=== PATIENT | female | born 1970 | race Caucasian/White ===

== ENCOUNTER 2024-10-14 20:35 | Emergency (ER) | payer MEDICAID, SELFPAY ==
[2024-10-14 20:55] VITALS: BP 134/79; PULSE 69; RESP 20; TEMP 37.5; O2SAT 97; BMI 26.4
--- NOTE | 2024-10-14 20:59 | XR_ITS ---
Examination: CT abdomen with intravenous contrast CT pelvis with intravenous contrast 2-D coronal reconstructions 2-D sagittal reconstructions Date and time of exam:October 14, 2024 1109 hrs. Comparison August 08, 2024 Indications: Nausea vomiting dizziness diarrhea beginning 24 hours ago. CTDI: vol (mGy) 7.55 DLP: (mGycm) 382 Technique: Multiple axial sections of the abdomen and pelvis have been obtained. 64 slice high-resolution scanner used. 3 mm axial sections have been obtained, post intravenous injection 60 cc [id number] 2-D sagittal, coronal reconstructions obtained. Low dose protocols were performed. One or more of the following dose reduction techniques were used; automated exposure control, adjustment of the mA and/or KV according to patient size, use of iterative reconstruction technique. Findings: No focal liver or splenic lesions Absent gallbladder No pancreatic or adrenal mass 3 mm 2 mm right renal calculi No hydronephrosis or ureteral calculi Minimally fluid distended small bowel loops On this study the entire colon shows wall thickening and hyperemia No diverticulitis No pericecal inflammatory change Urinary bladder intact Moderate disc narrowing L5-S1 No pelvic mass Impression: Nonobstructing right renal calculi Diffuse nonspecific colitis pattern
--- NOTE | 2024-10-14 21:01 | EDRME_ITS ---
Rapid Medical Screening Exam [facility] Arrival date/time: 10/14/24 20:35 54F with history of cholecystectomy and hysterectomy presents to ED with several days of N/V, gen ab pain/cramping, non-bloody diarrhea, and fevers/chills. Chief Complaint: Nausea/Vomiting/Diarrhea Vital signs: Vital Signs Temperature 99.5 F 10/14/24 20:55 Pulse Rate 69 10/14/24 20:55 Respiratory Rate 20 10/14/24 20:55 Blood Pressure 134/79 H 10/14/24 20:55 Pulse Oximetry (%) 97 10/14/24 20:55 Oxygen Delivery Method Room Air 10/14/24 20:55
[2024-10-14 21:33] LABS: Lactate (Lactic Acid) 1.1 mMol/L (0.4-2.0)
[2024-10-14 21:38] LABS: Basophils # (Auto) 0.1 Thou/mm3 (0.0-0.2); Basophils % (Auto) 1 % (0-2.5); Eosinophils % (Auto) 0 % (0-10); Hematocrit 41.1 % (36.0-46.0); Hemoglobin 14.1 g/dL (12.0-16.0); Immature Granulocytes % (Auto) 0 % (0-0); Immature Granulocytes Auto 0.02 Thou/mm3 (0.00-0.00); Lymphocytes # (Auto) 2.5 Thou/mm3 (1.0-4.8); Lymphocytes % (Auto) 24 % (10-50); Mean Corpuscular HGB Conc 34.3 g/dl (31.0-37.0); Mean Corpuscular Hemoglobin 31.8 pg (25.0-35.0); Mean Corpuscular Volume 93 fL (80-100); Monocytes # (Auto) 0.7 Thou/mm3 (0.0-0.8); Monocytes % (Auto) 7 % (0-12); Neutrophils # (Auto) 7.1 Thou/mm3 (1.8-7.7); Neutrophils % (Auto) 68 % (37-80); Nucleated Red Blood Cell % 0 /100 WBC (0); Platelet Count 220 Thou/mm3 (140-440); RDW Standard Deviation 42.7 fL (36.4-46.3); Red Blood Count 4.43 Miln/mm3 (4.00-5.20); White Blood Count 10.4 Thou/mm3 (3.6-11.0)
[2024-10-14 21:58] LABS: Collection Type, Urine Clean Catch
[2024-10-14 22:07] LABS: Alanine Aminotransferase 7 U/L (10-49); Albumin, Serum 4.4 gm/dL (3.5-5.0); Albumin/Globulin Ratio 1.5 (1.2-2.2); Alkaline Phosphatase 59 U/L (46-116); Anion Gap 8 (7-16); Aspartate Amino Transferase 14 U/L (0-34); BUN/Creatinine Ratio 13 Ratio (12-20); Bilirubin,Total 0.8 mg/dL (0.3-1.2); Blood Urea Nitrogen 9 mg/dL (9-23); Carbon Dioxide 25.3 mMol/L (20.0-31.0); Chloride 107 mMol/L (98-107); Creatinine (Component) 0.7 mg/dL (0.6-1.3); Estimated Creatinine Clearance 95.9 mL/min (>60); Globulin 2.9 gm/dL (2.3-3.5); Glucose 105 mg/dL (74-106); Lipase 35 U/L (12-53); Osmolality,Calculated 278 (275-295); Potassium 4.1 mMol/L (3.4-5.1); Procalcitonin < 0.04 ng/ml (0.0-0.49); Sodium 140 mMol/L (136-145); Total Protein 7.3 gm/dL (5.7-8.2); eGFR > 60 See Note
[2024-10-14 22:17] LABS: Bacteria,Urine 3+; Bilirubin,Urine Negative (Negative); Blood,Urine 1+ (Negative); Clarity,Urine Turbid (Clear/Hazy); Color,Urine Yellow (Lt Yel-Yel); Glucose, Urine Negative (Negative); Ketones,Urine 2+ (Negative); Leukocyte Esterase,Urine Negative (Negative); Nitrite,Urine Positive (Negative); Protein,Urine 1+ (Neg - Trace); RBC,Urine 9 /hpf (0-3); Specific Gravity,Urine 1.031 (1.001-1.035); Squamous Epithelial Cell,Urine 5 /hpf (0-5); Urobilinogen,Urine Negative mg/dL (0.0-1.0); WBC,Urine 9 /hpf (0-5)
[2024-10-14] MEDS: ONDANSETRON INJ 2 MG/ML INJ 2 ML 4 MG IV ×2 (22:18→22:57)
--- NOTE | 2024-10-14 22:29 | EDNOTE_ITS ---
Nausea/Vomit./Diarrhea-RME/HPI General Chief complaint: Nausea/Vomiting/Diarrhea Stated complaint: N/V/D, Dizzy Source: patient Arrival date/time: 10/14/24 20:35 Mode of arrival: ambulatory Limitations: no limitations RME / HPI RME / HPI Narrative: 10/14/24 20:35 54F with history of cholecystectomy and hysterectomy presents to ED with several days of N/V, gen ab pain/cramping, non-bloody diarrhea, and fevers/chills. DR BERMUDEZ MAIN ED EVALUATION: 54-year-old female who presents to the emergency department via private auto for chief complaint of persistent nausea and vomiting. She also reports worsening generalized abdominal pain accompanied with cramping. She reports non-blood diarrhea. She reports fever and chills. Denies any other medical complaints or associated symptons . History includes migraine, hypertension, anxiety, cholecystectomy and hysterectomy. No history of diabetes. No history of tobacco, alcohol or substance use. PCP: Ella Bishop Related Data Home Medications ?Medication ?Instructions ?Recorded ?Confirmed amlodipine 5 mg tablet 5 mg PO DAILY 08/21/22 06/28/24 estradiol 0.01% (0.1 mg/gram) 2 g vaginal DIRECTED 06/17/23 06/28/24 vaginal cream (Estrace) nitrofurantoin macrocrystal 100 mg 100 mg PO QHS 06/28/24 06/28/24 capsule Previous Rx's ?Medication ?Instructions ?Recorded ibuprofen 800 mg tablet 800 mg PO TID PRN pain #30 tabs 11/02/23 baclofen 10 mg tablet 10 mg PO BID #20 tabs 08/08/24 ciprofloxacin HCl 500 mg tablet 500 mg PO BID #20 tabs 10/15/24 (Cipro) metronidazole 500 mg tablet 500 mg PO TID #21 tabs 10/15/24 Allergies Allergy/AdvReac Type Severity Reaction Status Date / Time codeine Allergy Severe Vomiting Verified 08/08/24 08:43 [From Tylenol-Codeine] Review of Systems Review of Systems Systems Reviewed: All systems reviewed, normal except as documented Past Medical History Past Medical History NEUROLOGIC: Positive Neurological Disorders and Migraine; Negative Seizures CARDIAC: Positive Cardiac Disorders and Hypertension; Negative Congestive Heart Failure, Edema, Cellulitis, Hypotension or Varicose Veins RESPIRATORY: Negative Chronic Obstructive Pulmonary Disease (COPD), Asthma or Sleep Apnea GASTROINTESTINAL: Positive Gastrointestinal Disorders, Gall Bladder Disease and Obesity; Negative Hepatitis GENITOURINARY: Positive Genitourinary Disorders; Negative Renal Disease REPRODUCTIVE: Positive Previous Pregnancies MUSCULOSKELETAL: Negative Musculoskeletal Disorders ENDOCRINE: Negative Endocrine Disorders, Diabetes Mellitus Type 1, Diabetes Mellitus Type 2 or Hypothyroidism HEMATOLOGIC: Negative Blood Disorders, Anemia or Sickle Cell Disease PSYCHO/SOCIAL: Positive Anxiety OTHER HISTORY: Positive Chicken Pox; Negative Hospitalization, Autoimmune Disease, Shingles, Falls, Blood Transfusions, Anesthesia Reactions, Chemotherapy, Radiation Therapy, MRSA, Measles, Mumps or Cancer Family History FAMILY HISTORY: Positive Family Psychiatric Problems, Family Cardiac Disorders and Family Surgery; Negative Family Respiratory Disorders, Family Gastrointestinal Problems, Family Cancer or Family Anesthesia Reaction Surgical History SURGICAL: Positive Nephrectomy and Hysterectomy; Negative Cardiac Surgery, Pacemaker or Abdominal Surgery Social History SMOKING STATUS: Former smoker SUBSTANCE USE: does not use ED Exam Narrative Physical exam: GENERAL APPEARANCE: alert and oriented x 4, well-developed, well-nourished, no acute distress VITALS: All vitals were reviewed and the pulse ox is 97% on room air, which is normal according to my interpretation. HEENT: Normocephalic, atraumatic; pupils equal, round, reactive to light; EOMI; mucous membranes pink, moist; oropharynx clear NECK: Supple LUNGS: CTABL; no wheezes, no rales, no rhonchi HEART: Regular rate, regular rhythm; normal S1, S2; no murmurs ABDOMEN: non distended; normal BS; soft, no tenderness, no guarding, no rebound ; no masses, no organomegaly, no hernia BACK: no CVA tenderness EXTREMITIES: atraumatic; no edema NEUROLOGIC: awake; alert and oriented x4; cranial nerves II-XII grossly intact; no focal sensory or motor deficits PSYCHIATRIC: appropriate mood and affect SKIN: warm, dry, normal color; no rashes General Limitations: Present no limitations Course Quality Measures none Orders Category Date Time Status CT Screening NOW Care 10/14/24 21:01 Completed EKG (ED ONLY) *Do not use* NOW Care 10/15/24 00:30 Completed Insert IV NOW Care 10/14/24 20:[address] abdomen pelvis w con Stat Exams 10/14/24 20:59 Completed EKG (ED Only) Stat Exams 10/15/24 00:30 Draft CBC Stat Lab 12/12/24 21:17 Completed CMP [Comprehensive Metabolic Panel] Stat Lab 10/14/24 21:17 Completed Drug Screen,Urine Stat Lab 10/14/24 21:53 Completed Lactate (Lactic Acid) Stat Lab 10/14/24 21:17 Completed Lipase Stat Lab 10/14/24 21:17 Completed Procalcitonin Stat Lab 10/14/24 21:17 Completed Troponin I Stat Lab 10/15/24 01:55 Completed UA [Urinalysis] Stat Lab 10/14/24 21:53 Completed Urine Culture Stat Lab 10/14/24 21:53 Received Ciprofloxacin HCl [Ciprofloxacin] Med 10/15/24 02:35 Discontinued 500 mg PO X1 ONE Lidocaine 2% Viscous [Xylocaine 2% Viscous] Med 10/15/24 01:09 Discontinued 15 ml PO X1 ONE Morphine Inj Med 10/14/24 22:34 Discontinued 5 mg IVP X1 ONE Ondansetron Inj [Zofran Inj] Med 10/14/24 20:59 Discontinued 4 mg IV X1 ONE Ondansetron Inj [Zofran Inj] Med 10/14/24 22:34 Discontinued 4 mg IV X1 ONE Sodium Chloride 0.9% 1000 ml [Ns] 1,000 ml Med 10/14/24 22:34 Discontinued IV 999 mls/hr Sodium Chloride 0.9% 1000 ml [Ns] 1,000 ml Med 10/14/24 22:34 Discontinued IV 999 mls/hr metroNIDAZOLE [Flagyl] Med 10/15/24 02:35 Discontinued 500 mg PO X1 ONE mg Hyd/Al Hyd/Michele Susp [Maalox Susp] Med 10/15/24 01:09 Discontinued 30 ml PO X1 ONE Vital Signs Vital signs: Vital Signs Temperature 99.5 F 10/14/24 20:55 Pulse Rate 69 10/14/24 20:55 Respiratory Rate 20 10/14/24 20:55 Blood Pressure 134/79 H 10/14/24 20:55 Pulse Oximetry (%) 97 10/14/24 20:55 Oxygen Delivery Method Room Air 10/14/24 20:55 Nausea/Vomiting/Diarrhea MDM Narrative MDM Narrative:: Scribe Attestation: IDinah am scribing for and in the presence of Dr. Bermudez. Provider Notation: Although this document has been carefully reviewed, there may still be some phonetic and other typographical errors. These errors are purely grammatical due to imperfections in the software program and should not be construed in any way to compromise the substance of the patient's medical care during this visit. Patient data External records reviewed:: [facility] previous records Clinical information provided by:: patient Social determinants that could affect healthcare access:: none Patient has the following chronic illnesses:: migraine, hypertension, anxiety, cholecystectomy and hysterectomy How is presenting disease/condition affected by chronic disease/condition?: uneffected by Evaluation data The following diagnostics were reviewed and interpreted by me:: lab results and radiology exam(s) Lab and/or radiology exams considered but not ordered:: None Interpretation Summary: I personally reviewed the radiology data and agree with the radiologist's interpretation. Examination: CT abdomen with intravenous contrast CT pelvis with intravenous contrast 2-D coronal reconstructions 2-D sagittal reconstructions Date and time of exam:October 14, 2024 1109 hrs. Comparison August 08, 2024 Indications: Nausea vomiting dizziness diarrhea beginning 24 hours ago. Findings: No focal liver or splenic lesions Absent gallbladder No pancreatic or adrenal mass 3 mm 2 mm right renal calculi No hydronephrosis or ureteral calculi Minimally fluid distended small bowel loops On this study the entire colon shows wall thickening and hyperemia No diverticulitis No pericecal inflammatory change Urinary bladder intact Moderate disc narrowing L5-S1 No pelvic mass Impression: Nonobstructing right renal calculi Diffuse nonspecific colitis pattern Dictated By: Osmani Farah MD Medications / Prescriptions Medications / Prescriptions considered but not ordered:: None Medication administrations:: Medication Administration History Discontinued Medications Al Hydrox/Mg Hydrox/Simethicone (Mg Hyd/Al Hyd/Michele (Maalox Reg) Susp 30 Ml Udc) 30 ml PO X1 ONE Stop: 10/15/24 01:10 Last Admin: 10/15/24 01:13 Dose: 30 ml Documented By: DAVID Ciprofloxacin (Ciprofloxacin Hcl 250 Mg Tablet) 500 mg PO X1 ONE Stop: 10/15/24 02:36 Last Admin: 10/15/24 02:55 Dose: 500 mg Documented By: DAVID Sodium Chloride (Ns) 1,000 mls @ 999 mls/hr IV .Q1H1M ONE Stop: 10/14/24 23:34 Last Infusion: 10/14/24 23:57 Dose: Infused Documented By: Admin: 10/14/24 22:55 Dose: 999 mls/hr Documented By: DAVID Sodium Chloride (Ns) 1,000 mls @ 999 mls/hr IV .Q1H1M ONE Stop: 10/14/24 23:34 Last Infusion: 10/14/24 23:58 Dose: Infused Documented By: Admin: 10/14/24 22:55 Dose: 999 mls/hr Documented By: DAVID Lidocaine HCl (Lidocaine Viscous 2% 15 Ml Udc) 15 ml PO X1 ONE Stop: 10/15/24 01:10 Last Admin: 10/15/24 01:13 Dose: 15 ml Documented By: DAVID Metronidazole (Metronidazole 250 Mg Tablet) 500 mg PO X1 ONE Stop: 10/15/24 02:36 Last Admin: 10/15/24 02:55 Dose: 500 mg Documented By: DAVID Morphine Sulfate (Morphine Sulf Inj 10 Mg/Ml Vial) 5 mg IVP X1 ONE Stop: 10/14/24 22:35 Last Admin: 10/14/24 22:56 Dose: 5 mg Documented By: DAVID Ondansetron HCl (Ondansetron Inj 2 Mg/Ml Inj 2 Ml) 4 mg IV X1 ONE; Protocol Stop: 10/14/24 21:00 Last Admin: 10/14/24 22:18 Dose: 4 mg Documented By: DAVID Ondansetron HCl (Ondansetron Inj 2 Mg/Ml Inj 2 Ml) 4 mg IV X1 ONE Stop: 10/14/24 22:35 Last Admin: 10/14/24 22:57 Dose: 4 mg Documented By: DAVID As above, if any Consultations Consultation(s) initiated? (list below): No Diagnosis Nausea Differential Diagnosis: food poisoning, gastroenteritis, drug-induced nausea and vomiting and dehydration Most likely diagnosis given after review of the tests above:: Colitis Admission Indicated Admission indicated?: not indicated Admission Request Was there a request for admission?: No Disposition Plan Disposition Plan: Discharge Discharge Attestation Discharge Attestation: The patient and all family members were given an opportunity to ask questions and understood the discharge instructions. Discharge instructions specifically effects, indications for sooner follow up or return to the emergency department, and the expected course of current diagnosis. Patient condition: Stable Discharge Plan Plan Patient Disposition: HOME (Self Care) Prescriptions/Referrals Prescriptions/Med Rec: New metronidazole 500 mg tablet 500 mg PO TID Qty: 21 0RF ciprofloxacin HCl [Cipro] 500 mg tablet 500 mg PO BID Qty: 20 0RF No Action estradiol [Estrace] 0.01 % (0.1 mg/gram) cream 2 g vaginal DIRECTED Patient Comments: twice a week nitrofurantoin macrocrystal 100 mg capsule 100 mg PO QHS Rx Instructions: must administer with a meal/food amlodipine 5 mg tablet 5 mg PO DAILY Patient Comments: take 1 tablet by mouth once daily for high blood pressure ibuprofen 800 mg tablet 800 mg PO TID PRN (Reason: pain) Qty: 30 0RF baclofen 10 mg tablet 10 mg PO BID Qty: 20 0RF Referrals: Ella Bishop PA-C [Primary Care Provider] - In 1 week Problem List Clinical Impression: Colitis Patient/Caregiver Discharge Instructions Education Materials: Understanding Colitis Print Language: Indonesian Stand Alone Forms: Annalisa Award Info., Work/School Release, Patient Portal Info Letter
[2024-10-14] MEDS: SODIUM CHLORIDE 0.9% 1000 ML 1,000 ML 999 ML IV ×2 (22:55)
[2024-10-14] MEDS: MORPHINE SULF INJ 10 MG/ML VIAL 5 MG IVP (22:56)
[2024-10-14 23:33] LABS: Amphetamine/Methamp Scrn,U Negative (Negative); Barbiturate Screen,Urine Negative (Negative); Benzodiazepines Screen,Urine Negative (Negative); Benzoylecgonine Screen, Ur Negative (Negative); Fentanyl Screen,Urine Negative (Negative); Opiate Screen,Urine Negative (Negative); THC Screen,Urine Positive (Negative)
--- NOTE | 2024-10-15 00:30 | EKG_ITS ---
[facility] Test Date: 2024-10-15 Pat Name: VARINDER SHAFFER Department: Room: - Gender: Female [employer]: : 1970 Requested By: Sandrine Hernández Order Number: [id number] Reading MD: Sandrine Hernández Measurements Intervals [place] Rate: 74 P: 38 [place]: 140 QRS: 23 QRSD: 94 T: 15 QT: 359 QTc: 400 Interpretive Statements SINUS RHYTHM NONSPECIFIC T-WAVE ABNORMALITY Compared to ECG 08/21/2022 09:45:00 T-wave abnormality now present Sinus bradycardia no longer present Myocardial infarct finding no longer present /store/S0/[id number].pdf
[2024-10-15] MEDS: MG HYD/AL HYD/SIME (Maalox Reg) SUSP 30 ML UDC PO (01:13)
[2024-10-15] MEDS: LIDOCAINE VISCOUS 2% 15 ML UDC PO (01:13)
[2024-10-15 02:23] LABS: Troponin I < 0.002 ng/mL (0.0-0.045)
[2024-10-15 02:30] VITALS: BP 134/77; PULSE 71; RESP 17; TEMP 36.7; O2SAT 99
[2024-10-15] MEDS: metroNIDAZOLE 250 MG TABLET 500 MG PO (02:55)
[2024-10-15] MEDS: CIPROFLOXACIN HCL 250 MG TABLET 500 MG PO (02:55)
== END 2024-10-15 03:16 | disposition home or self-care (01) ==
PROVIDERS: Physician Assistant; Emergency Provider Emergency Medicine; PCP Physician Assistant
DX: K52.9 Noninfective gastroenteritis and colitis, unspecified (principal); N20.0 Calculus of kidney; R94.31 Abnormal electrocardiogram [ECG] [EKG]; I10 Essential (primary) hypertension; Z87.891 Personal history of nicotine dependence
CPT/HCPCS: 36415; 74177; 80053; 80307; 81001; 83605; 83690; 84145; 84484; 85025; 87077; 87086; 87186; 93005; 96361; 96374; 96375; 99285; A4649; J2270; J2405; J3490; J7030; Q9967; A9270

== ENCOUNTER 2025-02-01 09:54 | Emergency (ER) | payer MEDICAID, SELFPAY ==
--- NOTE | 2025-02-01 10:11 | EKG_ITS ---
[facility] Test Date: 2025-02-01 Pat Name: VARINDER SHAFFER Department: Room: - Gender: Female [employer]: : 1970 Requested By: Miki Jiang Order Number: [id number] Reading MD: Miki Jiang Measurements Intervals [place] Rate: 61 P: 36 AR: 143 QRS: 23 QRSD: 85 T: 29 QT: 387 QTc: 391 Interpretive Statements SINUS RHYTHM Compared to ECG 10/15/2024 00:39:37 T-wave abnormality no longer present /store/S0/[id number].pdf
--- NOTE | 2025-02-01 10:13 | PD.EDRME ---
Rapid Medical Screening Exam E Arrival date/time: 02/01/25 09:54 54-year-old female with a history of hypertension presents to the emergency room with a chief complaint of near syncope, weakness, and a burning sensation throughout her body x 3 days. I have greeted and performed a focused initial assessment of this patient. A comprehensive ED assessment and evaluation of the patient, analysis of all test results, and completion of the medical decision making process will be conducted by additional ED providers. Chief Complaint: General Adult/Misc Complain Vital signs reviewed by provider: Yes
[2025-02-01 10:18] VITALS: BP 127/79; PULSE 64; RESP 16; TEMP 36.7; O2SAT 99; BMI 22.8
[2025-02-01 10:52] LABS: Basophils % (Auto) 0 % (0-2.5); Eosinophils % (Auto) 0 % (0-10); Hematocrit 40.8 % (36.0-46.0); Hemoglobin 13.7 g/dL (12.0-16.0); Immature Granulocytes % (Auto) 0 % (0-0); Immature Granulocytes Auto 0.02 Thou/mm3 (0.00-0.00); Lymphocytes # (Auto) 1.2 Thou/mm3 (1.0-4.8); Lymphocytes % (Auto) 14 % (10-50); Mean Corpuscular HGB Conc 33.6 g/dl (31.0-37.0); Mean Corpuscular Hemoglobin 31.9 pg (25.0-35.0); Mean Corpuscular Volume 95 fL (80-100); Monocytes # (Auto) 0.4 Thou/mm3 (0.0-0.8); Monocytes % (Auto) 5 % (0-12); Neutrophils # (Auto) 6.7 Thou/mm3 (1.8-7.7); Neutrophils % (Auto) 80 % (37-80); Nucleated Red Blood Cell % 0 /100 WBC (0); Platelet Count 207 Thou/mm3 (140-440); RDW Standard Deviation 44.3 fL (36.4-46.3); Red Blood Count 4.29 Miln/mm3 (4.00-5.20); White Blood Count 8.4 Thou/mm3 (3.6-11.0)
[2025-02-01 11:10] LABS: INR 1.1 (0.9-1.3); Partial Thromboplastin Time 25.7 Seconds (22.0-36.0); Prothrombin Time 11.5 Seconds (9.0-12.2)
[2025-02-01 11:12] LABS: Collection Type, Urine Clean Catch
[2025-02-01 11:22] LABS: Bacteria,Urine 3+; Bilirubin,Urine Negative (Negative); Blood,Urine Trace (Negative); Calcium Oxalate Crystals,Urine 1+; Color,Urine Yellow (Lt Yel-Yel); Glucose, Urine Negative (Negative); Ketones,Urine Negative (Negative); Leukocyte Esterase,Urine Negative (Negative); Nitrite,Urine Negative (Negative); Protein,Urine Trace (Neg - Trace); RBC,Urine 4 /hpf (0-3); Specific Gravity,Urine 1.025 (1.001-1.035); Squamous Epithelial Cell,Urine 10 /hpf (0-5); Urobilinogen,Urine Negative mg/dL (0.0-1.0); WBC,Urine 9 /hpf (0-5)
[2025-02-01 11:24] LABS: B-Type Natriuretic Peptide 27 pg/mL (0-100)
[2025-02-01 11:35] LABS: Clarity,Urine Hazy (Clear/Hazy)
[2025-02-01 11:36] LABS: Alanine Aminotransferase < 7 U/L (10-49); Albumin, Serum 4.2 gm/dL (3.5-5.0); Albumin/Globulin Ratio 1.5 (1.2-2.2); Alkaline Phosphatase 57 U/L (46-116); Anion Gap 5 (7-16); Aspartate Amino Transferase 13 U/L (0-34); BUN/Creatinine Ratio 14 Ratio (12-20); Bilirubin,Total 0.5 mg/dL (0.3-1.2); Blood Urea Nitrogen 10 mg/dL (9-23); Calcium 9.2 mg/dL (8.3-10.6); Calcium (Corrected) 9.2 mg/dL (8.5-10.1); Carbon Dioxide 27.9 mMol/L (20.0-31.0); Chloride 107 mMol/L (98-107); Creatinine (Component) 0.7 mg/dL (0.6-1.3); Globulin 2.8 gm/dL (2.3-3.5); Glucose 87 mg/dL (74-106); Magnesium 2.1 mg/dL (1.6-2.6); Osmolality,Calculated 277 (275-295); Potassium 4.4 mMol/L (3.4-5.1); Sodium 140 mMol/L (136-145); Troponin I < 0.020 ng/mL (0.0-0.045); eGFR > 60 See Note
[2025-02-01 11:57] LABS: Amphetamine/Methamp Scrn,U Negative (Negative); Barbiturate Screen,Urine Negative (Negative); Benzodiazepines Screen,Urine Negative (Negative); Benzoylecgonine Screen, Ur Negative (Negative); Fentanyl Screen,Urine Negative (Negative); Opiate Screen,Urine Negative (Negative); THC Screen,Urine Positive (Negative)
--- NOTE | 2025-02-01 13:23 | PD.EDADULT ---
ED General RME/HPI General Chief complaint: General Adult/Misc Complain Stated complaint: HOT SENSATION OVER BODY, FEEL LIKE PASSING OUT Time Seen by Provider: 02/01/25 13:15 Arrival date/time: 02/01/25 09:54 CC: Flushed sensation with lightheadedness and generalized weakness HPI ongoing for the past several weeks but has multiple episodes in last 3 days. Denies chest pain shortness of breath or difficulty breathing. Upon reflection during our conversation patient realizes she is under a lot of stress. When asked if there is been a prior history of similar events patient states she had several years ago again when she was under a large amount of stress. Patient has no specific complaints at this time has no symptoms at this time as well. Patient is tearful mildly anxious but not in any acute distress. RME / HPI RME / HPI narrative: 02/01/25 09:54 54-year-old female with a history of hypertension presents to the emergency room with a chief complaint of near syncope, weakness, and a burning sensation throughout her body x 3 days. I have greeted and performed a focused initial assessment of this patient. A comprehensive ED assessment and evaluation of the patient, analysis of all test results, and completion of the medical decision making process will be conducted by additional ED providers. Related Data Home Medications ?Medication ?Instructions ?Recorded ?Confirmed amlodipine 5 mg tablet 5 mg PO DAILY 08/21/22 06/28/24 estradiol 0.01% (0.1 mg/gram) 2 g vaginal DIRECTED 06/17/23 06/28/24 vaginal cream (Estrace) nitrofurantoin macrocrystal 100 mg 100 mg PO QHS 06/28/24 06/28/24 capsule Previous Rx's ?Medication ?Instructions ?Recorded ibuprofen 800 mg tablet 800 mg PO TID PRN pain #30 tabs 11/02/23 baclofen 10 mg tablet 10 mg PO BID #20 tabs 08/08/24 ciprofloxacin HCl 500 mg tablet 500 mg PO BID #20 tabs 10/15/24 (Cipro) metronidazole 500 mg tablet 500 mg PO TID #21 tabs 10/15/24 amoxicillin 875 mg-potassium 1 tab PO BID #14 tabs 10/22/24 clavulanate 125 mg tablet Allergies Allergy/AdvReac Type Severity Reaction Status Date / Time codeine (From Allergy Severe Vomiting Verified 02/01/25 09:58 Tylenol-Codeine) Review of Systems Review of Systems Narrative Review of Systems: GEN: No fever, no chills, no weight loss EYES: No discharge, no visual changes, no pain HEENT: No ear pain, no congestion, no sore throat PULM: No shortness of breath, no cough, no congestion CV: No chest pain, no dyspnea on exertion, no palpitations GI: No nausea, no vomiting, no diarrhea, no pain, no constipation : No frequency, no urgency, no dysuria MUSC/SKEL: No joint pain, no back pain SKIN: No rash PSYCH: No hallucinations, no depression HEME/LYMPH: No easy bleeding or bruising tendencies NEURO: No weakness, no headache Past Medical History Past Medical History NEUROLOGIC: Positive Neurological Disorders and Migraine; Negative Seizures CARDIAC: Positive Cardiac Disorders and Hypertension; Negative Congestive Heart Failure, Edema, Cellulitis, Hypotension or Varicose Veins RESPIRATORY: Negative Chronic Obstructive Pulmonary Disease (COPD), Asthma or Sleep Apnea GASTROINTESTINAL: Positive Gastrointestinal Disorders, Gall Bladder Disease and Obesity; Negative Hepatitis GENITOURINARY: Positive Genitourinary Disorders; Negative Renal Disease REPRODUCTIVE: Positive Previous Pregnancies MUSCULOSKELETAL: Negative Musculoskeletal Disorders ENDOCRINE: Negative Endocrine Disorders, Diabetes Mellitus Type 1, Diabetes Mellitus Type 2 or Hypothyroidism HEMATOLOGIC: Negative Blood Disorders, Anemia or Sickle Cell Disease PSYCHO/SOCIAL: Positive Anxiety OTHER HISTORY: Positive Chicken Pox; Negative Hospitalization, Autoimmune Disease, Shingles, Falls, Blood Transfusions, Anesthesia Reactions, Chemotherapy, Radiation Therapy, MRSA, Measles, Mumps or Cancer Family History FAMILY HISTORY: Positive Family Psychiatric Problems, Family Cardiac Disorders and Family Surgery; Negative Family Respiratory Disorders, Family Gastrointestinal Problems, Family Cancer or Family Anesthesia Reaction Surgical History SURGICAL: Positive Nephrectomy and Hysterectomy; Negative Cardiac Surgery, Pacemaker or Abdominal Surgery Social History SMOKING STATUS: Never smoker SUBSTANCE USE: does not use ED Exam Narrative Physical exam: [General: Not in any acute distress Head normocephalic HEENT: Within acceptable limits Neck is supple nontender Chest equal chest rise nontender to palpation Respiratory: Clear to auscultation no wheezes crackles or rubs CV: Rate rhythm is regular no murmurs rubs or clicks Abdomen is soft nontender no masses positive bowel sounds all 4 quadrants Back: No CVA tenderness no spinous process tenderness from cervical spine thoracic and lumbar spine Skin: Intact no petechiae rash induration ulceration or crepitus Extremities: Moving all extremity against resistance cap refill less than 2 seconds neurosensory intact Neuro: Awake alert oriented x3 Glascow coma 15 no focal deficits] Course Quality Measures none Orders Category Date Time Status Bedside COVID-19 Antigen Test NOW Care 02/01/25 10:12 Active Bedside Influenza A&B Antigen Test NOW Care 02/01/25 10:12 Completed EKG (ED ONLY) *Do not use* NOW Care 02/01/25 10:11 Completed EKG (ED Only) Stat Exams 02/01/25 10:11 Draft B-Type Natriuretic Peptide Stat Lab 02/01/25 10:29 Completed CBC Stat Lab 02/01/25 10:29 Completed Comprehensive Metabolic Panel Stat Lab 02/01/25 10:29 Completed Drug Screen,Urine Stat Lab 02/01/25 10:45 Completed Magnesium Stat Lab 02/01/25 10:29 Completed Partial Thromboplastin Time Stat Lab 02/01/25 10:29 Completed Prothrombin Time with INR Stat Lab 02/01/25 10:29 Completed Troponin I Stat Lab 02/01/25 10:29 Completed Urinalysis Stat Lab 02/01/25 10:45 Completed Vital Signs Vital signs: Vital Signs Temperature 98.0 F 02/01/25 10:18 Pulse Rate 64 02/01/25 10:18 Respiratory Rate 16 02/01/25 10:18 Blood Pressure 127/79 02/01/25 10:18 Pulse Oximetry (%) 99 02/01/25 10:18 Oxygen Delivery Method Room Air 02/01/25 10:18 [facility] Patient data External records reviewed:: [facility] previous records Clinical information provided by:: patient Social determinants that could affect healthcare access:: none Patient has the following chronic illnesses:: None How is presenting disease/condition affected by chronic disease/condition?: uneffected by Evaluation data The following diagnostics were reviewed and interpreted by me:: lab results and radiology exam(s) Lab and/or radiology exams considered but not ordered:: CBC shows no acute leukocytosis anemia thrombocytopenia CMP shows no electrolyte imbalances renal impairment transaminitis or T. bili elevation Coags within acceptable limits Troponin is negative BNP is negative Urine is a contaminated catch U tox is positive for marijuana. EKG performed at 1022 shows a ventricular rate of 61 OK interval 143 QRS of 8 5 QTc of 390 this normal sinus rhythm. Interpretation Summary: After lengthy conversation with the patient regarding her symptoms I suspect this is all stress-induced, the patient has had similar episode several years ago and now has under a lot of stress and is having this reoccurrence there is no acute finding requires emergent or immediate intervention patient will be discharged home with a diagnosis of a stress response and if there is worsening of symptoms she is advised to follow-up with her primary care provider potentially speak with a counselor. Medications Medications considered but not ordered:: None Medication administrations:: None Consultations Consultation(s) initiated? (list below): No Diagnosis Differential Diagnosis ED Complaint MDM: ACS [place] pneumonia Most likely diagnosis given after review of the tests above:: Stress response Admission Indicated Admission indicated?: not indicated Explain why admission is indicated or not indicated:: Stable for discharge Admission Request Was there a request for admission?: No Disposition Plan Disposition Plan: Discharge Discharge Attestation Discharge Attestation: The patient and all family members were given an opportunity to ask questions and understood the discharge instructions. Discharge instructions specifically effects, indications for sooner follow up or return to the emergency department, and the expected course of current diagnosis. Patient condition: Stable Medical Decision Making Differential Diagnosis Differential Diagnosis: ACS [place] pneumonia Lab Data 02/01/25 10:29 02/01/25 10:29 Labs: Lab Results 02/01/25 02/01/25 Range/Units 10:29 10:45 WBC 8.4 (3.6-11.0) Thou/mm3 RBC 4.29 (4.00-5.20) Miln/mm3 Hgb 13.7 (12.0-16.0) g/dL Hct 40.8 (36.0-46.0) % MCV 95 (80-100) fL MCH 31.9 (25.0-35.0) pg MCHC 33.6 (31.0-37.0) g/dl RDW Std Deviation 44.3 (36.4-46.3) fL Plt Count 207 (140-440) Thou/mm3 Neut % (Auto) 80 (37-80) % Lymph % (Auto) 14 (10-50) % [place] % (Auto) 5 (0-12) % Eos % (Auto) 0 (0-10) % Baso % (Auto) 0 (0-2.5) % Neut # (Auto) 6.7 (1.8-7.7) Thou/mm3 Lymph # (Auto) 1.2 (1.0-4.8) Thou/mm3 [place] # (Auto) 0.4 (0.0-0.8) Thou/mm3 Eos # (Auto) 0.0 (0.0-0.5) Thou/mm3 Baso # (Auto) 0.0 (0.0-0.2) Thou/mm3 Immature Gran # (Auto) 0.02 H (0.00-0.00) Thou/mm3 Absolute Nucleated RBC 0.00 (0.00-0.00) Thou/mm3 Immature Gran % 0 (0-0) % Nucleated RBC % 0 (0) /100 WBC PT 11.5 (9.0-12.2) Seconds INR 1.1 (0.9-1.3) APTT 25.7 (22.0-36.0) Seconds Sodium 140 (136-145) mMol/L Potassium 4.4 (3.4-5.1) mMol/L Chloride 107 (98-107) mMol/L Carbon Dioxide 27.9 (20.0-31.0) mMol/L Anion Gap 5 L (7-16) BUN 10 (9-23) mg/dL Creatinine 0.7 (0.6-1.3) mg/dL Estim Creat Clear Calc 87.0 (>60) mL/min eGFR > 60 (60 - ) See Note BUN/Creatinine Ratio 14 (12-20) Ratio Glucose 87 (74-106) mg/dL Calculated Osmolality 277 (275-295) Calcium 9.2 (8.3-10.6) mg/dL Corrected Calcium 9.2 (8.5-10.1) mg/dL Magnesium 2.1 (1.6-2.6) mg/dL Total Bilirubin 0.5 (0.3-1.2) mg/dL AST 13 (0-34) U/L ALT < 7 L (10-49) U/L Alkaline Phosphatase 57 (46-116) U/L Troponin I < 0.020 (0.0-0.045) ng/mL B-Natriuretic Peptide 27 (0-100) pg/mL Total Protein 7.0 (5.7-8.2) gm/dL Albumin 4.2 (3.5-5.0) gm/dL Globulin 2.8 (2.3-3.5) gm/dL Albumin/Globulin Ratio 1.5 (1.2-2.2) Ur Collection Type Clean Catch Urine Color Yellow (Lt Yel-Yel) Urine Clarity Hazy (Clear/Hazy) Urine pH 6.0 (5.0-7.0) Ur Specific [place] 1.025 (1.001-1.035) Urine Protein Trace (Neg - Trace) Urine Glucose (UA) Negative (Negative) Urine Ketones Negative (Negative) Urine Blood Trace (Negative) Urine Nitrite Negative (Negative) Urine Bilirubin Negative (Negative) Urine Urobilinogen (Auto) Negative (0.0-1.0) mg/dL Ur Leukocyte Esterase Negative (Negative) Urine RBC 4 H (0-3) /hpf Urine WBC 9 H (0-5) /hpf Ur Squamous Epith Cells 10 H (0-5) /hpf Calcium Oxalate Crystal 1+ A (None) Urine Bacteria 3+ A (None) Urine Opiates Screen Negative (Negative) Urine Fentanyl Screen Negative (Negative) Ur Barbiturates Screen Negative (Negative) U Amphetamin/Meth Scrn Negative (Negative) U Benzodiazepines Scrn Negative (Negative) U Cocaine Metab Screen Negative (Negative) U Marijuana (THC) Screen Positive A (Negative) Discharge Plan Plan Patient Disposition: HOME (Self Care) Patient condition on transfer: Stable Prescriptions/Referrals Prescriptions/Med Rec: No Action estradiol [Estrace] 0.01 % (0.1 mg/gram) cream 2 g vaginal DIRECTED Patient Comments: twice a week nitrofurantoin macrocrystal 100 mg capsule 100 mg PO QHS Rx Instructions: must administer with a meal/food amlodipine 5 mg tablet 5 mg PO DAILY Patient Comments: take 1 tablet by mouth once daily for high blood pressure ibuprofen 800 mg tablet 800 mg PO TID PRN (Reason: pain) Qty: 30 0RF baclofen 10 mg tablet 10 mg PO BID Qty: 20 0RF metronidazole 500 mg tablet 500 mg PO TID Qty: 21 0RF ciprofloxacin HCl [Cipro] 500 mg tablet 500 mg PO BID Qty: 20 0RF amoxicillin-pot clavulanate 875-125 mg tablet 1 tab PO BID Qty: 14 0RF Referrals: Ella Bishop PA-C [Primary Care Provider] - In 1 week Problem List Clinical Impression: Stress response Impression comment: Follow-up with your primary care provider consider discussing these symptoms with counselor regarding her stress load. If there is worsening of symptoms feel free to return to the emergency room for reevaluation. Patient/Caregiver Discharge Instructions Education Materials: Anxiety Disorders Tx Therapy Print Language: Filipino Stand Alone Forms: [employer] Award Info., Work/School Release, Patient Portal Info Letter ALVIN/MOHAN Supervising Physician PA/MOHAN Supervising Physician: Colt Hernandez ENP
== END 2025-02-01 13:36 | disposition home or self-care (01) ==
PROVIDERS: Nurse Practitioner Family; Emergency Provider Emergency Medicine; PCP Physician Assistant
DX: F43.9 Reaction to severe stress, unspecified (principal); R53.1 Weakness
CPT/HCPCS: 36415; 80053; 80307; 81001; 83735; 83880; 84484; 85025; 85610; 85730; 87400; 87811; 93005; 99283

== ENCOUNTER → 2025-04-28 | Outpatient (CLI) | payer MEDICAID, SELFPAY ==
--- NOTE | 2025-04-28 11:30 | XR_ITS ---
Examination: Breast ultrasound, unilateral, left complete Date and time of exam: April 28, 2025 1129 hours INDICATIONS: History left breast cystic disease on ultrasound January 07, 2024 Technique: Real-time gunderson scale ultrasonographic imaging performed left breast including all 4 quadrants as well as nipple retroareolar and axillary region. Findings: Multiple (, the largest in the 12:00 position 9 x 8 mm 3:00 nodule circumscribed 5 x 4 mm 3:00 nodule circumscribed 3 x 3 mm IMPRESSION: BI-RADS Category 2: Benign findings
== END | disposition home or self-care (01) ==
LOC: CDIM 11:17
PROVIDERS: PCP Physician Assistant; Referring Provider Physician Assistant; Visit Provider Physician Assistant
DX: N63.25 Unspecified lump in the left breast, overlapping quadrants (principal)
CPT/HCPCS: 76641

== ENCOUNTER 2025-07-18 19:14 | Emergency (ER) | payer MEDICAID, SELFPAY ==
[2025-07-18 19:15] VITALS: BMI 22.8
[2025-07-18 19:54] VITALS: BP 137/80; PULSE 64; RESP 20; TEMP 36.7; O2SAT 99
--- NOTE | 2025-07-18 20:04 | XR_ITS ---
Examination: CT abdomen and pelvis without contrast. Coronal 3-D reconstructions. Sagittal 2-D reconstructions. Date and time of exam:July 18, 2025, 2029 hrs., Comparison October 14, 2024 Indications: Left flank pain today, history kidney stones CTDI: vol (mGy): 6.16 DLP: (mGycm): 305 Technique: Axial images of the abdomen have been obtained, 3 mm slice thickness Intravenous contrast material has not been administered. Low dose protocols were performed. One or more of the following dose reduction techniques were used; automated exposure control, adjustment of the mA and/or KV according to patient size, use of iterative reconstruction technique. Findings: No focal liver or splenic lesions Absent gallbladder No pancreatic mass 4 mm right renal calculus Minimal left hydronephrosis secondary to 1.5 mm mid left ureteral calculus axial image 118 Normal appendix Resting Aorta normal size No pericecal inflammatory change No bowel obstruction No diverticulitis Impression: Minimal left hydronephrosis secondary to 1.5 mm mid left ureteral calculus
--- NOTE | 2025-07-18 20:05 | PD.EDRME ---
Rapid Medical Screening Exam RME Arrival date/time: 07/18/25 19:14 This is a case of 55-year-old female with no medical history came in in the emergency room due to left-sided abdominal pain radiating to the left flank with nausea vomiting for 3 days worsening of the symptoms this patient decided to start consulted in the emergency room Chief Complaint: Abdominal Pain Time Seen by Provider: 07/18/25 19:34 Vital signs: Vital Signs Temperature 98.1 F 07/18/25 19:54 Pulse Rate 64 07/18/25 19:54 Respiratory Rate 20 07/18/25 19:54 Blood Pressure 137/80 H 07/18/25 19:54 Pulse Oximetry (%) 99 07/18/25 19:54 Oxygen Delivery Method Room Air 07/18/25 19:54
[2025-07-18 20:30] LABS: Collection Type, Urine Clean Catch
[2025-07-18 20:43] LABS: Bacteria,Urine 2+; Bilirubin,Urine Negative (Negative); Blood,Urine 1+ (Negative); Clarity,Urine Clear (Clear/Hazy); Color,Urine Yellow (Lt Yel-Yel); Glucose, Urine Negative (Negative); Ketones,Urine Negative (Negative); Leukocyte Esterase,Urine Positive (Negative); Nitrite,Urine Negative (Negative); PH,Urine 5.5 (5.0-7.0); Protein,Urine 1+ (Neg - Trace); RBC,Urine 8 /hpf (0-3); Specific Gravity,Urine 1.035 (1.001-1.035); Squamous Epithelial Cell,Urine 8 /hpf (0-5); Urobilinogen,Urine Negative mg/dL (0.0-1.0); WBC,Urine 9 /hpf (0-5)
[2025-07-18 20:45] LABS: HCG Qualitative,Urine Negative
[2025-07-18 20:52] LABS: Basophils # (Auto) 0.0 Thou/mm3 (0.0-0.2); Basophils % (Auto) 0 % (0-2.5); Eosinophils # (Auto) 0.0 Thou/mm3 (0.0-0.5); Eosinophils % (Auto) 0 % (0-10); Hematocrit 38.5 % (36.0-46.0); Hemoglobin 13.2 g/dL (12.0-16.0); Immature Granulocytes Auto 0.02 Thou/mm3 (0.00-0.00); Lymphocytes # (Auto) 3.2 Thou/mm3 (1.0-4.8); Lymphocytes % (Auto) 32 % (10-50); Mean Corpuscular HGB Conc 34.3 g/dl (31.0-37.0); Mean Corpuscular Hemoglobin 32.5 pg (25.0-35.0); Mean Corpuscular Volume 95 fL (80-100); Monocytes # (Auto) 0.6 Thou/mm3 (0.0-0.8); Monocytes % (Auto) 7 % (0-12); Neutrophils # (Auto) 6.0 Thou/mm3 (1.8-7.7); Neutrophils % (Auto) 60 % (37-80); Nucleated Red Blood Cell # 0.00 Thou/mm3 (0.00-0.00); Nucleated Red Blood Cell % 0 /100 WBC (0); Platelet Count 219 Thou/mm3 (140-440); RDW Standard Deviation 42.0 fL (36.4-46.3); Red Blood Count 4.06 Miln/mm3 (4.00-5.20); White Blood Count 9.9 Thou/mm3 (3.6-11.0)
[2025-07-18 21:22] LABS: Alanine Aminotransferase < 7 U/L (10-49); Albumin, Serum 4.2 gm/dL (3.5-5.0); Albumin/Globulin Ratio 1.4 (1.2-2.2); Alkaline Phosphatase 49 U/L (46-116); Amylase 103 U/L (30-118); Anion Gap 8 (7-16); Aspartate Amino Transferase 14 U/L (0-34); BUN/Creatinine Ratio 13 Ratio (12-20); Bilirubin,Total 0.4 mg/dL (0.3-1.2); Blood Urea Nitrogen 10 mg/dL (9-23); Calcium 9.4 mg/dL (8.3-10.6); Calcium (Corrected) 9.4 mg/dL (8.5-10.1); Carbon Dioxide 26.6 mMol/L (20.0-31.0); Chloride 106 mMol/L (98-107); Creatinine (Component) 0.8 mg/dL (0.6-1.3); Estimated Creatinine Clearance 75.3 mL/min (>60); Globulin 3.0 gm/dL (2.3-3.5); Glucose 95 mg/dL (74-106); Osmolality,Calculated 280 (275-295); Potassium 4.4 mMol/L (3.4-5.1); Sodium 141 mMol/L (136-145); Total Protein 7.2 gm/dL (5.7-8.2); eGFR > 60 See Note
--- NOTE | 2025-07-18 22:09 | PD.EDADULT ---
ED General RME/HPI General Chief complaint: Abdominal Pain Stated complaint: LUQ PAIN, NAUSEA Time Seen by Provider: 07/18/25 19:34 Arrival date/time: 07/18/25 19:14 CC: Left flank pain HPI ongoing for the past 2 days with mild nausea without vomiting denies diarrhea. Denies fever chills shortness of breath or difficulty breathing prior history of similar events that were result of kidney stones. The patient is awake alert oriented Tylenol is not managing her pain. Currently the pain is a 4 on a 10 scale. RME / HPI RME / HPI narrative: 07/18/25 19:14 This is a case of 55-year-old female with no medical history came in in the emergency room due to left-sided abdominal pain radiating to the left flank with nausea vomiting for 3 days worsening of the symptoms this patient decided to start consulted in the emergency room Related Data Home Medications ?Medication ?Instructions ?Recorded ?Confirmed amlodipine 5 mg tablet 5 mg PO DAILY 08/21/22 06/28/24 estradiol 0.01% (0.1 mg/gram) 2 g vaginal DIRECTED 06/17/23 06/28/24 vaginal cream (Estrace) nitrofurantoin macrocrystal 100 mg 100 mg PO QHS 06/28/24 06/28/24 capsule Previous Rx's ?Medication ?Instructions ?Recorded ibuprofen 800 mg tablet 800 mg PO TID PRN pain #30 tabs 11/02/23 baclofen 10 mg tablet 10 mg PO BID #20 tabs 08/08/24 ciprofloxacin HCl 500 mg tablet 500 mg PO BID #20 tabs 10/15/24 (Cipro) metronidazole 500 mg tablet 500 mg PO TID #21 tabs 10/15/24 amoxicillin 875 mg-potassium 1 tab PO BID #14 tabs 10/22/24 clavulanate 125 mg tablet ciprofloxacin HCl 500 mg tablet 500 mg PO BID #14 tabs 07/18/25 (Cipro) ketorolac 10 mg tablet 10 mg PO Q8H #10 tabs 07/18/25 ondansetron 4 mg disintegrating 4 mg PO Q8H #10 tabs 07/18/25 tablet Allergies Allergy/AdvReac Type Severity Reaction Status Date / Time codeine (From Allergy Severe Vomiting Verified 07/18/25 19:17 Tylenol-Codeine) Review of Systems Review of Systems Narrative Review of Systems: GEN: No fever, no chills, no weight loss EYES: No discharge, no visual changes, no pain HEENT: No ear pain, no congestion, no sore throat PULM: No shortness of breath, no cough, no congestion CV: No chest pain, no dyspnea on exertion, no palpitations GI: No nausea, no vomiting, no diarrhea, no pain, no constipation : No frequency, no urgency, no dysuria MUSC/SKEL: No joint pain, + back pain SKIN: No rash PSYCH: No hallucinations, no depression HEME/LYMPH: No easy bleeding or bruising tendencies NEURO: No weakness, no headache Past Medical History Past Medical History NEUROLOGIC: Positive Neurological Disorders and Migraine; Negative Seizures CARDIAC: Positive Cardiac Disorders and Hypertension; Negative Congestive Heart Failure, Edema, Cellulitis, Hypotension or Varicose Veins RESPIRATORY: Negative Chronic Obstructive Pulmonary Disease (COPD), Asthma or Sleep Apnea GASTROINTESTINAL: Positive Gastrointestinal Disorders, Gall Bladder Disease and Obesity; Negative Hepatitis GENITOURINARY: Positive Genitourinary Disorders; Negative Renal Disease REPRODUCTIVE: Positive Previous Pregnancies MUSCULOSKELETAL: Negative Musculoskeletal Disorders ENDOCRINE: Negative Endocrine Disorders, Diabetes Mellitus Type 1, Diabetes Mellitus Type 2 or Hypothyroidism HEMATOLOGIC: Negative Blood Disorders, Anemia or Sickle Cell Disease PSYCHO/SOCIAL: Positive Anxiety OTHER HISTORY: Positive Chicken Pox; Negative Hospitalization, Autoimmune Disease, Shingles, Falls, Blood Transfusions, Anesthesia Reactions, Chemotherapy, Radiation Therapy, MRSA, Measles, Mumps or Cancer Family History FAMILY HISTORY: Positive Family Psychiatric Problems, Family Cardiac Disorders and Family Surgery; Negative Family Respiratory Disorders, Family Gastrointestinal Problems, Family Cancer or Family Anesthesia Reaction Surgical History SURGICAL: Positive Nephrectomy and Hysterectomy; Negative Cardiac Surgery, Pacemaker or Abdominal Surgery Social History SMOKING STATUS: Current every day smoker SUBSTANCE USE: does not use ED Exam Narrative Physical exam: [General: In mild discomfort but not in any acute distress Head normocephalic HEENT: Within acceptable limits Neck is supple nontender Chest equal chest rise nontender to palpation Respiratory: Clear to auscultation no wheezes crackles or rubs CV: Rate rhythm is regular no murmurs rubs or clicks Abdomen is soft nontender no masses positive bowel sounds all 4 quadrants Back: Left-sided CVA tenderness no right-sided CVA tenderness. No spinous process tenderness from cervical spine thoracic and lumbar spine Skin: Intact no petechiae rash induration ulceration or crepitus Extremities: Moving all extremity against resistance cap refill less than 2 seconds neurosensory intact Neuro: Awake alert oriented x3 Glascow coma 15 no focal deficits] Course Quality Measures none Orders Category Date Time Status CT abdomen pelvis wo con Stat Exams 07/18/25 20:04 Completed Amylase Stat Lab 07/18/25 20:46 Completed CBC Stat Lab 07/18/25 20:46 Completed Comprehensive Metabolic Panel Stat Lab 07/18/25 20:46 Completed HCG Qualitative,Urine Stat Lab 07/18/25 20:20 Completed Urinalysis Stat Lab 07/18/25 20:20 Completed Ketorolac Inj [Toradol Inj] Med 07/18/25 22:04 Discontinued 30 mg IM X1 ONE Ondansetron Odt [Zofran Odt] Med 07/18/25 22:04 Discontinued 4 mg PO X1 ONE cefTRIAXone [Rocephin] 1,000 mg Med 07/18/25 22:08 Ordered Lidocaine 1% 20 ml [Xylocaine 1% 20 ML] 2.1 ml IM X1 Vital Signs Vital signs: Vital Signs Temperature 98.1 F 07/18/25 19:54 Pulse Rate 64 07/18/25 19:54 Respiratory Rate 20 07/18/25 19:54 Blood Pressure 137/80 H 07/18/25 19:54 Pulse Oximetry (%) 99 07/18/25 19:54 Oxygen Delivery Method Room Air 07/18/25 19:54 Discharge Plan Plan Patient Disposition: HOME (Self Care) Patient condition on transfer: Stable Prescriptions/Referrals Prescriptions/Med Rec: New ketorolac 10 mg tablet 10 mg PO Q8H Qty: 10 0RF Rx Instructions: maximum total duration of 5 days from all oral, intranasal, or parenteral formulations ciprofloxacin HCl [Cipro] 500 mg tablet 500 mg PO BID Qty: 14 0RF ondansetron 4 mg tablet,disintegrating 4 mg PO Q8H Qty: 10 0RF No Action estradiol [Estrace] 0.01 % (0.1 mg/gram) cream 2 g vaginal DIRECTED Patient Comments: twice a week nitrofurantoin macrocrystal 100 mg capsule 100 mg PO QHS Rx Instructions: must administer with a meal/food amlodipine 5 mg tablet 5 mg PO DAILY Patient Comments: take 1 tablet by mouth once daily for high blood pressure ibuprofen 800 mg tablet 800 mg PO TID PRN (Reason: pain) Qty: 30 0RF baclofen 10 mg tablet 10 mg PO BID Qty: 20 0RF metronidazole 500 mg tablet 500 mg PO TID Qty: 21 0RF ciprofloxacin HCl [Cipro] 500 mg tablet 500 mg PO BID Qty: 20 0RF amoxicillin-pot clavulanate 875-125 mg tablet 1 tab PO BID Qty: 14 0RF Referrals: Ella Bishop PA-C [Primary Care Provider, Family Practice] - In 1 week Paxton Farias MD [Physician, Nephrology] - In 1 week Problem List Clinical Impression: Urolithiasis, Flank pain Impression comment: Take the medication as prescribed if there is worsening of symptoms follow-up with urologist above or return the emergency room for reevaluation. Patient/Caregiver Discharge Instructions Education Materials: ED Kidney Stone w/ Colic Print Language: Spanish Stand Alone Forms: [employer] Award Info., Patient Portal Info Letter, Work/School Release ALVIN/MOHAN Supervising Physician ALVIN/MOHAN Supervising Physician: Colt Hernandez ENP [facility] Clinical Information Provided by patient Medical Records Reviewed [facility] Meds/Rx Considered, not Ordered None Labs/Rad/Tests considered, not Ordered None Chronic Illness/Social Conditions which may negatively complicate care or outcome(s)-explain: None or not applicable EKG EKG not done Lab Interpretation Labs: interpreted by me Lab(s) interpretation(s): CBC shows no acute leukocytosis anemia thrombocytopenia CMP shows no significant electrolyte imbalances renal impairment transaminitis or T. bili elevation Urine has 1+ protein 1+ blood leukocyte esterase +8 RBCs 9 WBCs 8 squamous epithelial 2+ bacteria. Imaging Imaging interpretation: interpreted by me Provider imaging interpretation(s): CT of the abdomen pelvis interpreted by me read by radiology shows 1.5 mm mid ureter urolithiasis with minimal hydronephrosis. Medication Administration(s) none Medication Administration History Ceftriaxone Sodium 1,000 mg/ (Lidocaine HCl 2.1 ml) 0 mg IM X1 ONE Stop: 07/18/25 22:09 Discontinued Medications Ketorolac Tromethamine (Ketorolac Inj 30 Mg/Ml Vial) 30 mg IM X1 ONE Stop: 07/18/25 22:05 Ondansetron HCl (Ondansetron Odt 4 Mg Tabrap) 4 mg PO X1 ONE; Protocol Stop: 07/18/25 22:05 Diagnosis Differential diagnosis: Hydronephrosis hydroureter urolithiasis Most likely dx, and/or detailed dx discussion: Urolithiasis Dispositon Disposition: Discharge Home
[2025-07-18] MEDS: ONDANSETRON ODT 4 MG TABRAP PO (22:23)
[2025-07-18] MEDS: KETOROLAC INJ 30 MG/ML VIAL IM (22:25)
[2025-07-18] MEDS: cefTRIAXone 1,000 MG, LIDOCAINE 1% 20 ML 2.1 ML IM (22:29)
[2025-07-18 22:51] VITALS: RESP 16
== END 2025-07-18 22:52 | disposition home or self-care (01) ==
PROVIDERS: Nurse Practitioner Family; Emergency Provider Emergency Medicine; PCP Physician Assistant
DX: N13.2 Hydronephrosis with renal and ureteral calculous obstruction (principal)
CPT/HCPCS: 36415; 74176; 80053; 81001; 81025; 82150; 85025; 96372; 99283; J0696; J1885; J3490; Q0162

== ENCOUNTER → 2025-08-01 | Outpatient (BNVA) | payer MEDICAID, SELFPAY | END | disposition home or self-care (01) | PROVIDERS: PCP Physician Assistant; Referring Provider Physician Assistant; Visit Provider Urology | DX: Z09 Encounter for follow-up examination after completed treatment for conditions other than malignant neoplasm (principal) | CPT/HCPCS: 81003; 99212; G0463 ==

== ENCOUNTER 2025-09-16 17:14 | Emergency (ER) | payer MEDICAID, SELFPAY ==
[2025-09-16 17:15] VITALS: BMI 22.7
[2025-09-16 17:24] VITALS: BP 149/87; PULSE 67; RESP 20; TEMP 36.9; O2SAT 98
--- NOTE | 2025-09-16 18:01 | EKG_ITS ---
[facility] Test Date: 2025-09-16 Pat Name: VARINDER SHAFFER Department: Room: - Gender: Female Fig Caprifier: : 1970 Requested By: Juan Jose Jiang Order Number: [id number] Reading MD: Juan Jose Jiang Measurements Intervals Bude Rate: 63 P: 48 RI: 134 QRS: 38 QRSD: 109 T: 41 QT: 387 QTc: 397 Interpretive Statements SINUS RHYTHM POSSIBLE LEFT ATRIAL ENLARGEMENT [-0.1mV P-WAVE IN V1/V2] LOW QRS VOLTAGE IN PRECORDIAL LEADS [QRS DEFLECTION < 1.0 mV IN CHEST LEADS] Compared to ECG 02/01/2025 10:22:44 Low QRS voltage now present /store/S0/[id number]/ecg/[id number].pdf
--- NOTE | 2025-09-16 18:02 | XR_ITS ---
EXAMINATION: PA chest single view TECHNIQUE: Upright PA chest single view Date and time: September 16, 2025, 1824 hours, comparison April 03, 2020 INDICATIONS: Weakness chest pain nausea today FINDINGS: Normal heart size Lungs are clear. The osseous structures are intact IMPRESSION: No active disease
--- NOTE | 2025-09-16 18:02 | PD.EDNV ---
Nausea/Vomit./Diarrhea-RME/HPI General Chief complaint: Nausea/Vomiting/Diarrhea Stated complaint: NAUSEA X3 DAYS Time Seen by Provider: 09/16/25 17:18 Arrival date/time: 09/16/25 17:14 RME / HPI RME / HPI Narrative: 55-year-old female with a past medical history of hypertension, cannabis use however she has not used it in 3 days as well, anxiety who typically takes lorazepam 0.5 mg tablets as needed for it who presents to the ER complaining of an acute exacerbation of her chronic anxiety which is associated with feeling of feeling of wanting to jump out of her chest along with nausea for the past 3 days. Denies vomiting, diarrhea, dysuria, abdominal pain, flank pain, headache, chest pain, shortness of breath. Patient endorses that after her prior visit 2 months ago when she had a kidney stone as well as a urinary tract infection her symptoms have since resolved and she has had no recurrence of fever, flank pain. Related Data Home Medications ?Medication ?Instructions ?Recorded ?Confirmed amlodipine 5 mg tablet 5 mg PO DAILY 08/21/22 08/01/25 Previous Rx's ?Medication ?Instructions ?Recorded ibuprofen 800 mg tablet 800 mg PO TID PRN pain #30 tabs 11/02/23 baclofen 10 mg tablet 10 mg PO BID #20 tabs 08/08/24 metronidazole 500 mg tablet 500 mg PO TID #21 tabs 10/15/24 ketorolac 10 mg tablet 10 mg PO Q8H #10 tabs 07/18/25 ondansetron 4 mg disintegrating 4 mg PO Q8H #10 tabs 07/18/25 tablet nitrofurantoin 100 mg PO Q12H 7 days #14 caps 09/16/25 monohydrate/macrocrystals 100 mg capsule (Macrobid) ondansetron 4 mg disintegrating 4 mg PO Q8H PRN nausea and 09/16/25 tablet vomiting #12 tabs Allergies Allergy/AdvReac Type Severity Reaction Status Date / Time codeine (From Allergy Severe Vomiting Verified 08/01/25 08:52 Tylenol-Codeine) ED Exam Narrative Physical exam: Constitutional: Patient alert and oriented. Well appearing. No acute distress. Not toxic appearing. Anxious appearing Head: Normocephalic, atraumatic. Eyes: Periorbital regions bilaterally normal to inspection. Conjunctiva clear bilaterally. Sclera anicteric bilaterally. Pupils equal, round, reactive to light bilaterally. Extraocular movements intact bilaterally. Mouth/Throat: Mucous membranes moist. No stridor or muffled voice. No trismus. Handling secretions without difficulty. Airway widely patent. Neck: Supple. Trachea midline. No JVD. No nuchal rigidity. Normal range of motion. Respiratory: Normal effort. No accessory muscle use or respiratory distress. Lungs clear to auscultation bilaterally without rhonchi, wheezes, or crackles. Cardiovascular: RRR. Normal S1/S2. No murmurs or rubs. Radial pulses intact bilaterally. Abdomen: Soft. Non-distended. Non-tender throughout. No pulsatile mass. No guarding or rebound. Negative Gomez?s sign. Negative McBurney?s point tenderness. Negative Rovsing?s. Back: No midline tenderness or step-offs. No CVA tenderness to palpation bilaterally. Upper Extremities: No gross deformities. Lower Extremities: No gross deformities. No edema or calf tenderness. Neuro: Speech normal. No gross motor or sensory deficits to upper or lower extremities bilaterally. GCS 15. CN II?XII grossly intact. Skin: Warm, dry, normal color. Psych: Normal affect. Cooperative. Normal insight. Course Quality Measures none Orders Category Date Time Status EKG (ED ONLY) *Do not use* NOW Care 09/16/25 18:01 Completed EKG (ED Only) Stat Exams 09/16/25 18:01 Draft XR chest 1V Stat Exams 09/16/25 18:02 Completed CBC Stat Lab 09/16/25 18:12 Completed CMP [Comprehensive Metabolic Panel] Stat Lab 09/16/25 18:12 Completed HCG Qualitative,Urine Stat Lab 09/16/25 19:00 Completed Lipase Stat Lab 09/16/25 18:12 Completed TSH [Thyroid Stimulating Hormone] Stat Lab 09/16/25 18:12 Completed Troponin I Stat Lab 09/16/25 18:12 Completed UA, C/S IF [Urinalysis, C/S if Indicated] Stat Lab 09/16/25 19:00 Completed Urine Culture Stat Lab 09/16/25 19:00 Received LORazepam [Ativan] Med 09/16/25 18:02 Discontinued 0.5 mg PO X1 ONE Ondansetron Odt [Zofran Odt] Med 09/16/25 18:01 Discontinued 4 mg PO X1 ONE Reevaluation(s) Reevaluation #1: At the time of reassessment, the patient remains alert and oriented ?3 with GCS 15. Vitals are normal, pain is controlled, and the patient is tolerating oral intake without nausea or vomiting. The patient is agreeable to discharge and verbalizes understanding of the diagnosis, studies, treatment plan, medications (including side effects/precautions), and strict ER return precautions as discussed in the ED. All concerns were addressed, and the patient is comfortable with the plan. Time: 20:38 Vital Signs Vital signs: Vital Signs Temperature 98.5 F 09/16/25 17:24 Pulse Rate 67 09/16/25 17:24 Respiratory Rate 20 09/16/25 17:24 Blood Pressure 149/87 H 09/16/25 17:24 Pulse Oximetry (%) 98 09/16/25 17:24 Oxygen Delivery Method Room Air 09/16/25 17:24 PROCEDURES: EKG Interpretation #1: Date of EK09/16/25 Time of EK:29 Rate: 63 Interpretation: Interpreted by me EKG Impression: Normal sinus rhythm, No acute ST-T changes and No ischemic changes Nausea/Vomiting/Diarrhea MDM Narrative MDM Narrative:: MDM 55-year-old female presents to the ER complaining of persistent nausea as well as anxiety for the past 3 days. Prior urine culture 1 year ago noted ESBL E. coli which is susceptible to Augmentin and Macrobid. ER workup unremarkable aside from minimally elevated lipase and concern for UTI and there is no severe metabolic or electrolyte abnormality Serial abdominal exams benign and neuroexam remains nonfocal therefore doubt acute intraabdominal or retroperitoneal emergent pathology. I additionally considered atypical ACS however patient's heart score is low risk and patient safe for outpatient follow-up and doubt unstable angina. Given lack of flank pain or fever doubt recurrence of urologic obstruction. Will treat empirically for UTI as possible source of patient's nausea additionally cannot exclude cannabis hyperemesis syndrome however patient is not vomiting at this time, cannabis cessation discussed with patient and educated her about this possibility. Patient remains without significant dehydration and is tolerating p.o. without difficulty along with anxiety symptoms well-controlled therefore suspect patient safe for outpatient follow-up. Patient data External records reviewed:: [facility] previous records Clinical information provided by:: patient Social determinants that could affect healthcare access:: substance use Patient has the following chronic illnesses:: As noted How is presenting disease/condition affected by chronic disease/condition?: exacerbated by Evaluation data The following diagnostics were reviewed and interpreted by me:: lab results, radiology exam(s) and EKG tracing(s) Lab and/or radiology exams considered but not ordered:: Additional Labs and radiology considered, but not ordered as they were not clinically indicated at this time. Interpretation Summary: EKG without acute ischemia, high grade AV block, arrhythmia CBC without severe leukocytosis, anemia, or thrombocytopenia CMP without severe hyperbilirubinemia, transaminitis, acute renal failure or severe electrolyte derangement Lipase without severe elevation however it is minimally elevated at 64 Troponin undetectable, TSH within normal limits UA notable for 19 RBCs, 35 WBCs, 9 squames cells, 1+ bacteria pending urine culture however this is concerning for a possible UTI and will treat empirically Medications / Prescriptions Medications / Prescriptions considered but not ordered:: I considered prescription management (both outpatient prescriptions AND drug treatment in the ER) and decided that this was necessary and was prescribed as charted. Medication administrations:: Medication Administration History Discontinued Medications Lorazepam (Lorazepam 0.5 Mg Tablet) 0.5 mg PO X1 ONE Stop: 09/16/25 18:03 Last Admin: 09/16/25 18:21 Dose: 0.5 mg Documented By: Ondansetron HCl (Ondansetron Odt 4 Mg Tabrap) 4 mg PO X1 ONE; Protocol Stop: 09/16/25 18:02 Last Admin: 09/16/25 18:21 Dose: 4 mg Documented By: As noted Consultations Consultation(s) initiated? (list below): No Diagnosis Nausea Differential Diagnosis: gastroenteritis, drug-induced nausea and vomiting and dehydration Most likely diagnosis given after review of the tests above:: Nausea of unclear etiology however given pyuria and urine we will treat empirically pending urine culture and this is all complicated by an acute exacerbation of her anxiety Admission Indicated Admission indicated?: not indicated Admission Request Was there a request for admission?: No Disposition Plan Disposition Plan: Discharge Discharge Attestation Discharge Attestation: The patient and all family members were given an opportunity to ask questions and understood the discharge instructions. Discharge instructions specifically effects, indications for sooner follow up or return to the emergency department, and the expected course of current diagnosis. Patient condition: Stable Discharge Plan Plan Patient Disposition: HOME (Self Care) Patient condition on transfer: Stable Prescriptions/Referrals Prescriptions/Med Rec: New ondansetron 4 mg tablet,disintegrating 4 mg PO Q8H PRN (Reason: nausea and vomiting) Qty: 12 0RF Rx Instructions: 1-2 tabs PO Q8Hr prn nausea or vomit nitrofurantoin monohyd/m-cryst [Macrobid] 100 mg capsule 100 mg PO Q12H 7 Days Qty: 14 0RF Rx Instructions: must administer with a meal/food No Action amlodipine 5 mg tablet 5 mg PO DAILY Patient Comments: take 1 tablet by mouth once daily for high blood pressure ibuprofen 800 mg tablet 800 mg PO TID PRN (Reason: pain) Qty: 30 0RF baclofen 10 mg tablet 10 mg PO BID Qty: 20 0RF metronidazole 500 mg tablet 500 mg PO TID Qty: 21 0RF ketorolac 10 mg tablet 10 mg PO Q8H Qty: 10 0RF Rx Instructions: maximum total duration of 5 days from all oral, intranasal, or parenteral formulations ondansetron 4 mg tablet,disintegrating 4 mg PO Q8H Qty: 10 0RF Referrals: Ella Bishop PA-C [Primary Care Provider, Family Practice] - In 1 week Problem List Clinical Impression: Nausea, UTI (urinary tract infection) Patient/Caregiver Discharge Instructions Education Materials: Urinary Tract Infections in Women, ED Anxiety Reaction Additional Instructions: Follow up with your primary medical doctor within 24 hours. Return to the Emergency Room immediately for any new, worsening, continuing symptoms or any concerns at all. Return to the Emergency Room within 24 hours if you are unable to follow up with your primary medical doctor within 24 hours. Print Language: Malay Stand Alone Forms: Annalisa Award Info., Patient Portal Info Letter PA/MOHAN Supervising Physician PA/MOHAN Supervising Physician: Dr. Holliday
[2025-09-16] MEDS: ONDANSETRON ODT 4 MG TABRAP PO (18:21)
[2025-09-16 18:49] LABS: Alanine Aminotransferase 8 U/L (10-49); Albumin, Serum 4.6 gm/dL (3.5-5.0); Albumin/Globulin Ratio 1.8 (1.2-2.2); Alkaline Phosphatase 45 U/L (46-116); Anion Gap 7 (7-16); Aspartate Amino Transferase 17 U/L (0-34); BUN/Creatinine Ratio 13 Ratio (12-20); Bilirubin,Total 0.4 mg/dL (0.3-1.2); Blood Urea Nitrogen 9 mg/dL (9-23); Calcium 9.9 mg/dL (8.3-10.6); Calcium (Corrected) 9.9 mg/dL (8.5-10.1); Carbon Dioxide 28.6 mMol/L (20.0-31.0); Chloride 105 mMol/L (98-107); Creatinine (Component) 0.7 mg/dL (0.6-1.3); Estimated Creatinine Clearance 86.0 mL/min (>60); Globulin 2.5 gm/dL (2.3-3.5); Glucose 93 mg/dL (74-106); Lipase 64 U/L (12-53); Osmolality,Calculated 279 (275-295); Potassium 4.6 mMol/L (3.4-5.1); Sodium 141 mMol/L (136-145); Thyroid Stimulating Hormone 0.97 uIU/mL (0.55-4.78); Total Protein 7.1 gm/dL (5.7-8.2); Troponin I < 0.002 ng/mL (0.0-0.045); eGFR > 60 See Note
[2025-09-16 19:24] LABS: Collection Type, Urine Voided
[2025-09-16 19:29] LABS: Basophils # (Auto) 0.1 Thou/mm3 (0.0-0.2); Basophils % (Auto) 1 % (0-2.5); Eosinophils # (Auto) 0.1 Thou/mm3 (0.0-0.5); Eosinophils % (Auto) 1 % (0-10); Hematocrit 38.9 % (36.0-46.0); Hemoglobin 13.0 g/dL (12.0-16.0); Immature Granulocytes Auto 0.02 Thou/mm3 (0.00-0.00); Lymphocytes # (Auto) 3.1 Thou/mm3 (1.0-4.8); Lymphocytes % (Auto) 38 % (10-50); Mean Corpuscular HGB Conc 33.4 g/dl (31.0-37.0); Mean Corpuscular Hemoglobin 32.3 pg (25.0-35.0); Mean Corpuscular Volume 97 fL (80-100); Monocytes # (Auto) 0.6 Thou/mm3 (0.0-0.8); Monocytes % (Auto) 7 % (0-12); Neutrophils # (Auto) 4.3 Thou/mm3 (1.8-7.7); Neutrophils % (Auto) 53 % (37-80); Nucleated Red Blood Cell # 0.00 Thou/mm3 (0.00-0.00); Nucleated Red Blood Cell % 0 /100 WBC (0); Platelet Count 198 Thou/mm3 (140-440); RDW Standard Deviation 45.1 fL (36.4-46.3); Red Blood Count 4.02 Miln/mm3 (4.00-5.20); White Blood Count 8.1 Thou/mm3 (3.6-11.0)
[2025-09-16 19:34] LABS: Bacteria,Urine 1+; Bilirubin,Urine Negative (Negative); Blood,Urine 1+ (Negative); Clarity,Urine Clear (Clear/Hazy); Color,Urine Yellow (Lt Yel-Yel); Glucose, Urine Negative (Negative); Ketones,Urine Negative (Negative); Leukocyte Esterase,Urine Positive (Negative); Nitrite,Urine Negative (Negative); PH,Urine 6.0 (5.0-7.0); Protein,Urine Trace (Neg - Trace); RBC,Urine 19 /hpf (0-3); Specific Gravity,Urine 1.026 (1.001-1.035); Squamous Epithelial Cell,Urine 9 /hpf (0-5); Urobilinogen,Urine Negative mg/dL (0.0-1.0); WBC,Urine 35 /hpf (0-5)
[2025-09-16 19:54] LABS: Culture Indicated,Urine Yes
[2025-09-16 20:19] LABS: HCG Qualitative,Urine Negative
[2025-09-16 21:20] VITALS: BP 122/78; PULSE 78
== END 2025-09-16 21:22 | disposition home or self-care (01) ==
PROVIDERS: Physician Assistant; Emergency Provider Family Medicine; PCP Physician Assistant
DX: N39.0 Urinary tract infection, site not specified (principal); F41.1 Generalized anxiety disorder
CPT/HCPCS: 36415; 71045; 80053; 81001; 81025; 83690; 84443; 84484; 85025; 87086; 93005; 99283; Q0162; A9270